=== PATIENT | female | born 1990 | race Caucasian/White ===

== ENCOUNTER 2017-01-01 21:00 | Emergency (ER) | payer OTHER ==
[~2017-01-01] VITALS: Ht 157.5 cm; Wt 90.7 kg
--- NOTE | 2017-01-01 21:00 | NUR ---
PT [employer] [employer] [employer], PREBOOK. TAKEN TO BED 6
[2017-01-01 21:01] VITALS: BP 118/75
--- NOTE | 2017-01-01 21:10 | NUR ---
Dr. Jeffery evaluating patient at bedside.
--- NOTE | 2017-01-01 21:13 | NUR ---
26/F anastasia [facility] [employer] as a prebook. Pt states she had a miscarriage 1 month ago. Denies bleeding at this time. Denies pain. AOX4, ambulates with steady gait. VSS.
[2017-01-01 21:17] VITALS: BP 118/75
--- NOTE | 2017-01-01 21:18 | NUR ---
PATIENT BIB [employer]. [place]. PATIENT MEDICALLY CLEARED AND RELEASED IN CUSTODY IN STABLE CONDITION. ORIGINAL PRE-BOOK FORM GIVEN TO OFFICER .
== END 2017-01-01 21:18 ==
LOC: MED 21:00
DX: Z02.89 Encounter for other administrative examinations (principal)
CPT/HCPCS: 99283